=== PATIENT | female | born 1950 | race African-American/Black ===

== ENCOUNTER → 2018-02-08 | Outpatient (CLI) | payer MEDICARE, OTHER ==
[~2018-02-08] VITALS: Ht 165.1 cm; Wt 61.5 kg
[~2018-02-08] MED LIST: HYDR-3705 PO
[2018-02-08 11:02] VITALS: BP 133/88
== END | disposition home or self-care (01) ==
LOC: SRCNTR 10:44
PROVIDERS: ATTEND Internal Medicine Critical Care Medicine
DX: J43.9 Emphysema, unspecified (principal); E55.9 Vitamin D deficiency, unspecified; E78.5 Hyperlipidemia, unspecified; M79.7 Fibromyalgia
CPT/HCPCS: G0463

== ENCOUNTER → 2018-03-08 | Outpatient (CLI) | payer MEDICARE, OTHER | END | disposition home or self-care (01) | LOC: RESP 08:32 | PROVIDERS: ATTEND Internal Medicine Critical Care Medicine | DX: J44.1 Chronic obstructive pulmonary disease with (acute) exacerbation (principal) | CPT/HCPCS: 94010; 94726; 94727; 94729 ==

== ENCOUNTER 2018-11-01 07:51 | Emergency (ER) | payer MEDICARE, OTHER ==
[~2018-11-01] VITALS: Ht 165.1 cm; Wt 62.3 kg
[2018-11-01] MEDS ORDERED: MAGN100T3 PO (08:17)
[2018-11-01] MEDS ORDERED: RANI50VI4 IM (08:17)
[2018-11-01 08:48] LABS: BASOPHILS % (AUTO) 1.3 % (0.0-2.0); EOSINOPHILS % (AUTO) 2.3 % (1.0-6.0); HEMATOCRIT 41.1 % (36-46); HEMOGLOBIN 13.7 g/dL (12.0-16.0); LYMPHOCYTES # (AUTO) 1.7 K/uL (1.0-4.8); LYMPHOCYTES % (AUTO) 38.9 % (22.0-44.0); MEAN CORPUSCULAR HEMOGLOBIN 31.6 pg (26.0-34.0); MEAN CORPUSCULAR HGB CONC 33.2 G/dL (31.0-37.0); MEAN CORPUSCULAR VOLUME 95 fL (80-100); MONOCYTES # (AUTO) 0.3 K/uL (0.1-1.0); MONOCYTES % (AUTO) 7.4 % (2.0-9.0); NEUTROPHILS # (AUTO) 2.2 K/uL (1.8-7.7); NEUTROPHILS % (AUTO) 50.1 % (40.0-70.0); PLATELET COUNT (AUTO) 225 K/uL (150-450); RED BLOOD CELL COUNT(AUTO) 4.32 MIL/uL (4.00-5.20); RED CELL DISTRIBUTION WIDTH 15.6 % (11.5-14.5)
[2018-11-01 08:52] LABS: ANION GAP 8 mmol/L (8-16); CALCIUM, TOTAL 9.2 mg/dL (8.8-10.5); CARBON DIOXIDE 28 mmol/L (22-29); CHLORIDE 104 mmol/L (98-107); CREATININE 0.77 mg/dL (0.60-1.30); GLOMERULAR FILTR. RATE CALC > 60 mL/min (>60); GLUCOSE,RANDOM 89 mg/dL (70-110); POTASSIUM 3.9 mmol/L (3.5-5.1); SODIUM SERUM 140 mmol/L (136-145); UREA NITROGEN, BLOOD 5 mg/dL (7-18)
[2018-11-01 08:58] LABS: ALANINE AMINOTRANSFERASE 28 U/L (12-78); ALBUMIN 3.5 g/dL (3.4-5.0); ALKALINE PHOSPHATASE 68 U/L (46-116); ASPARTATE AMINOTRANSFERASE 19 U/L (15-37); BILIRUBIN,TOTAL 0.3 mg/dL (0.1-1.0); TOTAL PROTEIN, SERUM 7.6 g/dL (6.4-8.2)
[2018-11-01 10:56] LABS: BILIRUBIN,URINE NEGATIVE (NEGATIVE); GLUCOSE, URINE (UA) NEGATIVE (NEGATIVE); KETONES,URINE NEGATIVE (NEGATIVE); LEUKOCYTE ESTERASE ,URINE MODERATE (NEGATIVE); NITRATE,URINE NEGATIVE (NEGATIVE); OCCULT BLOOD,URINE NEGATIVE (NEGATIVE); PROTEIN,URINE NEGATIVE (NEGATIVE); UROBILINOGEN,URINE 0.2 mg/dL (<=1.0)
[2018-11-01 11:07] LABS: APPEARANCE,URINE HAZY (CLEAR); BACTERIA,URINE Few /HPF (None Seen); RBC,URINE None Seen /HPF (0-2)
[2018-11-01 12:01] VITALS: BP 147/90
[2018-11-01 14:01] LABS: GLUCOSE,POINT OF CARE 110 MG/DL (70-110)
== END 2018-11-01 12:10 | disposition home or self-care (01) ==
LOC: EMS 07:51
DX: N39.0 Urinary tract infection, site not specified (principal); R51 Headache; M79.7 Fibromyalgia; F32.9 Major depressive disorder, single episode, unspecified; R42 Dizziness and giddiness; R07.89 Other chest pain; Z79.899 Other long term (current) drug therapy
CPT/HCPCS: 87086; 93005

== ENCOUNTER 2019-08-27 05:21 | Inpatient (IN) | payer MEDICARE, OTHER ==
[~2019-08-27] VITALS: Ht 165.1 cm; Wt 69.8 kg
[~2019-08-27 05:21] MED LIST changes: -HYDR-3705 PO; +HYDR-3706 PO; +MAGN100T3 PO; +RANI50VI4 IM
[2019-08-27] MEDS ORDERED: ALBU8HFA IH (05:58)
[2019-08-27] MEDS ORDERED: ACETAMINOPHEN 500 MG TABLET PO ONE (06:15)
[2019-08-27] MEDS ORDERED: SODIUM CHLORIDE 0.9% 1,000 ML IV ONE ×2 (06:15→09:30)
[2019-08-27 06:30] LABS: BASOPHILS % (AUTO) 1.1 % (0.0-2.0); EOSINOPHILS % (AUTO) 1.8 % (1.0-6.0); HEMATOCRIT 41.6 % (36-46); HEMOGLOBIN 13.7 g/dL (12.0-16.0); LYMPHOCYTES # (AUTO) 1.7 K/uL (1.0-4.8); LYMPHOCYTES % (AUTO) 17.4 % (22.0-44.0); MEAN CORPUSCULAR HEMOGLOBIN 31.1 pg (26.0-34.0); MEAN CORPUSCULAR VOLUME 94 fL (80-100); MONOCYTES # (AUTO) 0.4 K/uL (0.1-1.0); MONOCYTES % (AUTO) 4.4 % (2.0-9.0); NEUTROPHILS # (AUTO) 7.2 K/uL (1.8-7.7); NEUTROPHILS % (AUTO) 75.3 % (40.0-70.0); PLATELET COUNT (AUTO) 204 K/uL (150-450); RED BLOOD CELL COUNT(AUTO) 4.42 MIL/uL (4.00-5.20); RED CELL DISTRIBUTION WIDTH 14.8 % (11.5-14.5)
[2019-08-27 06:41] LABS: PROTHROMBIN TIME 10.1 SEC (9.4-11.6)
[2019-08-27] MEDS ORDERED: SODIUM CHLORIDE 0.9% 2,200 ML IV ONE (06:45)
[2019-08-27] MEDS ORDERED: ACETAMINOPHEN 650 MG RECTAL SUPPOSITORY PR ONE ×2 (06:45)
[2019-08-27 07:08] LABS: INFLUENZA TYPE A NEGATIVE FOR TYPE A (NEGATIVE); INFLUENZA TYPE B NEGATIVE FOR TYPE B (NEGATIVE)
[2019-08-27 07:09] LABS: CREATINE KINASE, TOTAL ONLY 142 U/L (26-192); LIPASE 73 U/L (73-393)
[2019-08-27] MEDS ORDERED: AZITHROMYCIN 500 MG/NS 250 ML IV ONE (07:15)
[2019-08-27] MEDS ORDERED: CefTRIAXone 1 GM/DEXTROSE 50 ML IV ONE (07:15)
[2019-08-27 08:21] LABS: ANION GAP 13 mmol/L (8-16); CALCIUM, TOTAL 9.2 mg/dL (8.8-10.5); CARBON DIOXIDE 25 mmol/L (22-29); CHLORIDE 104 mmol/L (98-107); CREATININE 0.93 mg/dL (0.60-1.30); GLOMERULAR FILTR. RATE CALC > 60 mL/min (>60); GLUCOSE,RANDOM 96 mg/dL (70-110); POTASSIUM 3.6 mmol/L (3.5-5.1); SODIUM SERUM 142 mmol/L (136-145); UREA NITROGEN, BLOOD 11 mg/dL (7-18)
[2019-08-27 08:27] LABS: ALANINE AMINOTRANSFERASE 20 U/L (12-78); ALKALINE PHOSPHATASE 58 U/L (46-116); ASPARTATE AMINOTRANSFERASE 17 U/L (15-37); BILIRUBIN,TOTAL 0.6 mg/dL (0.1-1.0); TOTAL PROTEIN, SERUM 8.3 g/dL (6.4-8.2)
[2019-08-27] MEDS ORDERED: 0.9% SODIUM CHLORIDE 10 ML SYRINGE IVP PRN ×2 (08:30→10:45)
[2019-08-27] MEDS ORDERED: ACETAMINOPHEN 325 MG TABLET PO PRN (08:30)
[2019-08-27 08:36] LABS: APPEARANCE,URINE CLOUDY (CLEAR); BILIRUBIN,URINE NEGATIVE (NEGATIVE); GLUCOSE, URINE (UA) NEGATIVE (NEGATIVE); KETONES,URINE NEGATIVE (NEGATIVE); LEUKOCYTE ESTERASE ,URINE MODERATE (NEGATIVE); NITRATE,URINE POSITIVE (NEGATIVE); OCCULT BLOOD,URINE TRACE (NEGATIVE); PH,URINE 6.5 (5.0-8.0); PROTEIN,URINE NEGATIVE (NEGATIVE); UROBILINOGEN,URINE 0.2 mg/dL (<=1.0)
[2019-08-27 08:37] LABS: BACTERIA,URINE Many /HPF (None Seen); RBC,URINE 0-2 /HPF (0-2); SQUAMOUS EPITHELIAL CELL,UR Moderate /LPF (None Seen)
[2019-08-27 09:29] LABS: LACTIC ACID 3.4 mmol/L (0.4-2.0)
[2019-08-27] MEDS ORDERED: HYDR-4069 PO (10:44)
[2019-08-27] MEDS ORDERED: IPRATROPIUM BROMIDE 0.5 MG/2.5 ML NEB SOLUTION NEB PRN (10:45)
[2019-08-27] MEDS ORDERED: MAGNESIUM HYDROXIDE SUSPENSION 30 ML UDCUP PO PRN (10:45)
[2019-08-27] MEDS ORDERED: BISACODYL 10 MG RECTAL RECTAL SUPPOSITORY PR PRN (10:45)
[2019-08-27] MEDS ORDERED: ALBUTEROL SULFATE 2.5 MG/0.5 ML NEB SOLUTION NEB PRN (10:45)
[2019-08-27] MEDS ORDERED: ONDANSETRON HCL 4 MG/2 ML VIAL IVP PRN (10:45)
[2019-08-27] MEDS ORDERED: DOCUSATE SODIUM 100 MG CAPSULE PO PRN (10:45)
[2019-08-27] MEDS ORDERED: TraMADol HCL 50 MG TABLET PO PRN (11:00)
[2019-08-27 11:44] VITALS: BP 103/57
[2019-08-27] MEDS: SODIUM CHLORIDE 0.9% 1,000 ML IV SCH (12:33)
[2019-08-27] MEDS: PANTOPRAZOLE SODIUM 40 MG DR TABLET PO SCH (12:33)
[2019-08-27] MEDS ORDERED: PNEUMOCOCCAL VACCINE POLYVALENT 0.5 ML VIAL [PPSV23] IM ONE (15:00)
[2019-08-27 16:06] VITALS: BP 135/65
[2019-08-27] MEDS: ACETAMINOPHEN 325 MG TABLET PO PRN (18:02)
[2019-08-27 20:24] VITALS: BP 105/57
[2019-08-27] MEDS ORDERED: 0.9% SODIUM CHLORIDE 5 ML NEB SOLUTION NEB ONE (22:51)
[2019-08-27 23:29] VITALS: BP 122/76
[2019-08-28] MEDS: SODIUM CHLORIDE 0.9% 1,000 ML IV SCH ×3 (00:21→22:03)
[2019-08-28 05:28] VITALS: BP 108/62
[2019-08-28] MEDS: ACETAMINOPHEN 325 MG TABLET PO PRN ×2 (05:56→15:39)
[2019-08-28 06:51] LABS: BASOPHILS % (AUTO) 0.6 % (0.0-2.0); EOSINOPHILS % (AUTO) 2.2 % (1.0-6.0); HEMATOCRIT 31.3 % (36-46); HEMOGLOBIN 10.5 g/dL (12.0-16.0); LYMPHOCYTES # (AUTO) 0.5 K/uL (1.0-4.8); LYMPHOCYTES % (AUTO) 10.9 % (22.0-44.0); MEAN CORPUSCULAR HEMOGLOBIN 31.2 pg (26.0-34.0); MEAN CORPUSCULAR HGB CONC 33.4 G/dL (31.0-37.0); MEAN CORPUSCULAR VOLUME 93 fL (80-100); MONOCYTES # (AUTO) 0.3 K/uL (0.1-1.0); MONOCYTES % (AUTO) 6.9 % (2.0-9.0); NEUTROPHILS # (AUTO) 3.9 K/uL (1.8-7.7); NEUTROPHILS % (AUTO) 79.4 % (40.0-70.0); PLATELET COUNT (AUTO) 158 K/uL (150-450); RED BLOOD CELL COUNT(AUTO) 3.36 MIL/uL (4.00-5.20); RED CELL DISTRIBUTION WIDTH 14.8 % (11.5-14.5)
[2019-08-28 07:08] LABS: ANION GAP 11 mmol/L (8-16); CARBON DIOXIDE 22 mmol/L (22-29); CHLORIDE 108 mmol/L (98-107); CREATININE 0.66 mg/dL (0.60-1.30); GLOMERULAR FILTR. RATE CALC > 60 mL/min (>60); GLUCOSE,RANDOM 83 mg/dL (70-110); POTASSIUM 3.2 mmol/L (3.5-5.1); SODIUM SERUM 141 mmol/L (136-145); UREA NITROGEN, BLOOD 6 mg/dL (7-18)
[2019-08-28 08:18] VITALS: BP 111/68
[2019-08-28] MEDS: CefTRIAXone 1 GM/DEXTROSE 50 ML IV SCH (08:31)
[2019-08-28] MEDS: PANTOPRAZOLE SODIUM 40 MG DR TABLET PO SCH (08:32)
[2019-08-28] MEDS: AZITHROMYCIN 500 MG/NS 250 ML IV SCH (08:33)
[2019-08-28 11:46] VITALS: BP 111/85
[2019-08-28 15:53] VITALS: BP 116/65
[2019-08-28 21:02] VITALS: BP 147/67
[2019-08-29 00:42] VITALS: BP 135/74
[2019-08-29] MEDS: ACETAMINOPHEN 325 MG TABLET PO PRN ×2 (03:05→23:26)
[2019-08-29 05:24] VITALS: BP 118/64
[2019-08-29 06:05] LABS: BASOPHILS % (AUTO) 0.5 % (0.0-2.0); EOSINOPHILS % (AUTO) 6.4 % (1.0-6.0); HEMATOCRIT 30.9 % (36-46); HEMOGLOBIN 10.3 g/dL (12.0-16.0); LYMPHOCYTES # (AUTO) 1.2 K/uL (1.0-4.8); MEAN CORPUSCULAR HEMOGLOBIN 31.1 pg (26.0-34.0); MEAN CORPUSCULAR HGB CONC 33.4 G/dL (31.0-37.0); MEAN CORPUSCULAR VOLUME 93 fL (80-100); MONOCYTES # (AUTO) 0.6 K/uL (0.1-1.0); MONOCYTES % (AUTO) 11.3 % (2.0-9.0); NEUTROPHILS % (AUTO) 58.8 % (40.0-70.0); PLATELET COUNT (AUTO) 150 K/uL (150-450); RED BLOOD CELL COUNT(AUTO) 3.32 MIL/uL (4.00-5.20); RED CELL DISTRIBUTION WIDTH 14.7 % (11.5-14.5)
[2019-08-29 06:23] LABS: ANION GAP 13 mmol/L (8-16); CARBON DIOXIDE 22 mmol/L (22-29); CHLORIDE 107 mmol/L (98-107); CREATININE 0.75 mg/dL (0.60-1.30); GLUCOSE,RANDOM 76 mg/dL (70-110); SODIUM SERUM 142 mmol/L (136-145); UREA NITROGEN, BLOOD 5 mg/dL (7-18)
[2019-08-29 06:24] LABS: CALCIUM, TOTAL 8.1 mg/dL (8.8-10.5); GLOMERULAR FILTR. RATE CALC > 60 mL/min (>60)
[2019-08-29 07:50] VITALS: BP 141/84
[2019-08-29] MEDS: CefTRIAXone 1 GM/DEXTROSE 50 ML IV SCH (08:28)
[2019-08-29] MEDS: PANTOPRAZOLE SODIUM 40 MG DR TABLET PO SCH (08:29)
[2019-08-29] MEDS: AZITHROMYCIN 500 MG/NS 250 ML IV SCH (08:29)
[2019-08-29] MEDS: SODIUM CHLORIDE 0.9% 1,000 ML IV SCH (09:49)
[2019-08-29 12:13] VITALS: BP 135/75
[2019-08-29 16:35] VITALS: BP 139/78
[2019-08-29] MEDS: CEFEPIME HCL 1 GM in DEXTROSE 5%-WATER 50 ML IV SCH ×2 (17:06→23:24)
[2019-08-29] MEDS ORDERED: POTASSIUM CHL 10 MEQ/WATER 50 ML IV PRN (17:15)
[2019-08-29] MEDS ORDERED: POTASSIUM CHLORIDE 20 MEQ ER TABLET PO PRN (17:15)
[2019-08-29] MEDS ORDERED: SODIUM CHLORIDE 0.9% 250 ML IV ONE (17:47)
[2019-08-29 20:35] VITALS: BP 140/82
[2019-08-30 00:25] VITALS: BP 123/64
[2019-08-30 02:53] VITALS: BP 114/67
[2019-08-30] MEDS: CEFEPIME HCL 1 GM in DEXTROSE 5%-WATER 50 ML IV SCH (06:25)
[2019-08-30 07:46] VITALS: BP 156/99
[2019-08-30] MEDS: PANTOPRAZOLE SODIUM 40 MG DR TABLET PO SCH (09:29)
[2019-08-30] MEDS ORDERED: *CLINICAL-CEFEPIME DOSING CLINICAL SCH (10:00)
[2019-08-30] MEDS: AZITHROMYCIN 500 MG/NS 250 ML IV SCH (10:50)
[2019-08-30 11:27] VITALS: BP 152/77
[2019-08-30] MEDS ORDERED: LEVO250 PO (11:29)
== END 2019-08-30 13:20 | disposition home or self-care (01) | DRG 871 ==
LOC: EMS 05:23 → 5S 09:54
PROVIDERS: ADMIT Internal Medicine; ATTEND Internal Medicine
DX: A41.9 Sepsis, unspecified organism (principal); J18.9 Pneumonia, unspecified organism; N39.0 Urinary tract infection, site not specified; R65.20 Severe sepsis without septic shock; M79.7 Fibromyalgia; R53.81 Other malaise; M19.90 Unspecified osteoarthritis, unspecified site; F32.9 Major depressive disorder, single episode, unspecified; J40 Bronchitis, not specified as acute or chronic; Z87.11 Personal history of peptic ulcer disease; Z96.659 Presence of unspecified artificial knee joint; Z88.0 Allergy status to penicillin; Z88.8 Allergy status to other drugs, medicaments and biological substances; Z79.899 Other long term (current) drug therapy
CPT/HCPCS: 83605; 83735; 84132; 84145; 87040; 87086; 87804; 93005; 94640; 97161; 97165; 99291; J0456; J0692; J0696; J7030; J7050; J7060

== ENCOUNTER 2024-10-15 13:21 | Emergency (ER) | payer MEDICARE, OTHER ==
[~2024-10-15] VITALS: Ht 165.1 cm; Wt 75.9 kg
[~2024-10-15 13:21] MED LIST changes: +ALBU18HF12 IH; -HYDR-3706 PO; +HYDR-4069 PO; +LEVO250T75 PO; -MAGN100T3 PO; -RANI50VI4 IM
[2024-10-15 13:31] VITALS: BP 173/103; TEMP 98.3
[2024-10-15 13:52] LABS: COVID AG,FIA SOURCE NASAL SWAB
[2024-10-15 14:01] LABS: BASOPHILS % (AUTO) 1.5 % (0.0-2.0); EOSINOPHILS % (AUTO) 11.8 % (1.0-6.0); HEMATOCRIT 39.1 % (36-46); LYMPHOCYTES # (AUTO) 2.7 K/uL (1.0-4.8); LYMPHOCYTES % (AUTO) 51.4 % (22.0-44.0); MEAN CORPUSCULAR HEMOGLOBIN 31.4 pg (26.0-34.0); MEAN CORPUSCULAR HGB CONC 33.2 G/dL (31.0-37.0); MEAN CORPUSCULAR VOLUME 95 fL (80-100); MONOCYTES # (AUTO) 0.3 K/uL (0.1-1.0); NEUTROPHILS # (AUTO) 1.5 K/uL (1.8-7.7); NEUTROPHILS % (AUTO) 29.3 % (40.0-70.0); PLATELET COUNT (AUTO) 236 K/uL (150-450); RED BLOOD CELL COUNT(AUTO) 4.13 MIL/uL (4.00-5.20); RED CELL DISTRIBUTION WIDTH 15.5 % (11.5-14.5); WHITE BLOOD COUNT (AUTO) 5.3 K/uL (4.5-11.0)
[2024-10-15 14:11] LABS: INFLUENZA TYPE A NEGATIVE FOR TYPE A (NEGATIVE); INFLUENZA TYPE B NEGATIVE FOR TYPE B (NEGATIVE); SARS-COV2 (COVID) ANTIGEN,FIA Negative (Negative)
[2024-10-15 14:16] LABS: ANION GAP 6 mmol/L (8-16); CALCIUM, TOTAL 9.2 mg/dL (8.8-10.5); CARBON DIOXIDE 30 mmol/L (22-29); CHLORIDE 105 mmol/L (98-107); CREATININE 0.88 mg/dL (0.60-1.30); GLOMERULAR FILTR. RATE CALC > 60 mL/min (>60); GLUCOSE,RANDOM 114 mg/dL (70-110); POTASSIUM 3.9 mmol/L (3.5-5.1); SODIUM SERUM 141 mmol/L (136-145); UREA NITROGEN, BLOOD 3 mg/dL (7-18)
[2024-10-15] MEDS: GuaiFENesin/D-METHORPHAN [SUGAR-FREE] 200-20MG/10 ML SYRUP UDCUP PO ONE (14:44)
[2024-10-15] MEDS: ACETAMINOPHEN 500 MG TABLET PO ONE (14:44)
[2024-10-15] MEDS: CIPROFLOXACIN HCL 250 MG TABLET PO ONE (14:44)
[2024-10-15 15:00] LABS: TROPONIN I-HIGH SENSITIVITY 16 ng/L (<51)
[2024-10-15] MEDS ORDERED: CIPR500T10 PO (15:04)
[2024-10-15] MEDS ORDERED: ACET-66 PO (15:04)
[2024-10-15] MEDS ORDERED: GUAIFDM PO (15:04)
[2024-10-15] MEDS ORDERED: ALBU18HF12 IH (15:04)
[2024-10-15] MEDS: ALBUTEROL SULFATE 2.5 MG/0.5 ML NEB SOLUTION NEB ONE (15:12)
[2024-10-15] MEDS: IPRATROPIUM BROMIDE 0.5 MG/2.5 ML NEB SOLUTION NEB ONE (15:12)
[2024-10-15 15:13] VITALS: PULSE 81; RESP 18; O2SAT 96
[2024-10-15 15:17] VITALS: PULSE 81; RESP 18; O2SAT 96
[2024-10-15 15:25] VITALS: PULSE 54; RESP 17; O2SAT 100
[2024-10-15] MEDS ORDERED: PRED-554 PO (15:50)
== END 2024-10-15 16:03 | disposition home or self-care (01) ==
LOC: EMS 13:21
DX: J98.4 Other disorders of lung (principal); R06.02 Shortness of breath; F12.90 Cannabis use, unspecified, uncomplicated; M79.7 Fibromyalgia; Z87.11 Personal history of peptic ulcer disease; Z88.1 Allergy status to other antibiotic agents; Z88.2 Allergy status to sulfonamides; Z96.659 Presence of unspecified artificial knee joint; Z20.822 Contact with and (suspected) exposure to COVID-19
CPT/HCPCS: 71045; 80048; 84484; 85025; 87804; 93005; 94640; 99285; 36415-L1; 36415-TC; J7613

== ENCOUNTER 2025-02-19 07:43 | Emergency (ER) | payer MEDICARE, OTHER ==
[~2025-02-19] VITALS: Ht 154.9 cm; Wt 65.9 kg
[~2025-02-19 07:43] MED LIST changes: +ACET-66 PO; +CIPR-478 PO; +GUAIFDM PO; -HYDR-4069 PO; -LEVO250T75 PO; +PRED-554 PO
[2025-02-19 08:04] LABS: COVID AG,FIA SOURCE NASAL SWAB
[2025-02-19 08:09] VITALS: BP 134/87; PULSE 81; RESP 17; TEMP 98.105288; O2SAT 99
[2025-02-19 08:26] LABS: INFLUENZA TYPE A NEGATIVE FOR TYPE A (NEGATIVE); INFLUENZA TYPE B NEGATIVE FOR TYPE B (NEGATIVE); SARS-COV2 (COVID) ANTIGEN,FIA Negative (Negative)
[2025-02-19] MEDS ORDERED: ALBU18HF12 IH (08:52)
== END 2025-02-19 09:22 | disposition home or self-care (01) ==
LOC: EMS 07:45
DX: J06.9 Acute upper respiratory infection, unspecified (principal); J44.9 Chronic obstructive pulmonary disease, unspecified; F12.90 Cannabis use, unspecified, uncomplicated; Z88.1 Allergy status to other antibiotic agents; Z88.2 Allergy status to sulfonamides; Z87.11 Personal history of peptic ulcer disease; Z79.52 Long term (current) use of systemic steroids; Z20.822 Contact with and (suspected) exposure to COVID-19
CPT/HCPCS: 71046; 87804; 99283

== ENCOUNTER 2025-08-01 09:03 | Emergency (ER) | payer MEDICARE, OTHER ==
[~2025-08-01] VITALS: Ht 165.1 cm; Wt 64.5 kg
[~2025-08-01 09:03] MED LIST changes: -CIPR-478 PO; +CIPR-515 PO
[2025-08-01 09:07] VITALS: TEMP 98.1
[2025-08-01 09:17] LABS: COVID AG,FIA SOURCE NASAL SWAB
[2025-08-01] MEDS: KETOROLAC TROMETHAMINE 30 MG/ML VIAL IM ONE (10:02)
[2025-08-01] MEDS: AZITHROMYCIN 500 MG TABLET PO ONE (10:03)
[2025-08-01 10:06] LABS: INFLUENZA TYPE A NEGATIVE FOR TYPE A (NEGATIVE); INFLUENZA TYPE B NEGATIVE FOR TYPE B (NEGATIVE); SARS-COV2 (COVID) ANTIGEN,FIA Negative (Negative)
[2025-08-01] MEDS ORDERED: AZIT-164 PO (10:10)
[2025-08-01] MEDS ORDERED: ACET-2247 PO (10:10)
[2025-08-01 10:46] VITALS: BP 135/86; PULSE 81; RESP 18; O2SAT 99
== END 2025-08-01 10:50 | disposition home or self-care (01) ==
LOC: EMS 09:07
DX: J40 Bronchitis, not specified as acute or chronic (principal); F32.A Depression, unspecified; R05.9 Cough, unspecified; M19.90 Unspecified osteoarthritis, unspecified site; F12.90 Cannabis use, unspecified, uncomplicated; Z88.1 Allergy status to other antibiotic agents; Z88.2 Allergy status to sulfonamides; Z96.659 Presence of unspecified artificial knee joint; Z20.822 Contact with and (suspected) exposure to COVID-19
CPT/HCPCS: 99283; 71046; 87426; 87804; 96372; J1885; J0456

== ENCOUNTER 2025-10-09 08:11 | Emergency (ER) | payer MEDICARE, OTHER ==
[~2025-10-09] VITALS: Ht 165.1 cm; Wt 66.0 kg
[~2025-10-09 08:11] MED LIST changes: +ACET-2247 PO; -ACET-66 PO; +AZIT-164 PO; -CIPR-515 PO; -GUAIFDM PO; -PRED-554 PO
[2025-10-09 08:33] VITALS: BP 134/86; TEMP 98.4
[2025-10-09] MEDS: ALBUTEROL SULFATE 2.5 MG/0.5 ML NEB SOLUTION NEB ONE (08:57)
[2025-10-09] MEDS: IPRATROPIUM BROMIDE 0.5 MG/2.5 ML NEB SOLUTION NEB ONE (08:57)
[2025-10-09] MEDS: GuaiFENesin/D-METHORPHAN [SUGAR-FREE] 200-20MG/10 ML SYRUP UDCUP PO ONE (09:02)
[2025-10-09] MEDS: ACETAMINOPHEN 500 MG TABLET PO ONE (09:03)
[2025-10-09 09:04] VITALS: PULSE 79; RESP 18; O2SAT 99
[2025-10-09 09:05] LABS: COVID AG,FIA SOURCE NASAL SWAB
[2025-10-09 09:06] LABS: PLATELET COUNT (AUTO) 235 K/uL (150-450); RED BLOOD CELL COUNT(AUTO) 4.26 MIL/uL (4.00-5.20); RED CELL DISTRIBUTION WIDTH 15.5 % (11.5-14.5); WHITE BLOOD COUNT (AUTO) 4.3 K/uL (4.5-11.0)
[2025-10-09 09:18] LABS: CALCIUM, TOTAL 9.4 mg/dL (8.8-10.5); CREATININE 0.65 mg/dL (0.60-1.30); GLOMERULAR FILTR. RATE CALC > 60 mL/min (>60); GLUCOSE,RANDOM 86 mg/dL (70-110); SODIUM SERUM 143 mmol/L (136-145); UREA NITROGEN, BLOOD 5 mg/dL (7-18)
[2025-10-09 09:22] LABS: TROPONIN I-HIGH SENSITIVITY 15 ng/L (<51)
[2025-10-09 09:25] LABS: INFLUENZA TYPE A NEGATIVE FOR TYPE A (NEGATIVE); INFLUENZA TYPE B NEGATIVE FOR TYPE B (NEGATIVE); SARS-COV2 (COVID) ANTIGEN,FIA Negative (Negative)
[2025-10-09 09:30] VITALS: PULSE 75; RESP 17; O2SAT 100
[2025-10-09] MEDS ORDERED: ACET-66 PO (09:35)
[2025-10-09] MEDS ORDERED: GUAIFDM PO (09:35)
[2025-10-09] MEDS ORDERED: ALBU18HF12 IH (09:35)
[2025-10-09] MEDS ORDERED: AZIT250T9 PO (09:35)
[2025-10-09] MEDS ORDERED: PRED-554 PO (09:35)
== END 2025-10-09 10:05 | disposition home or self-care (01) ==
LOC: EMS 08:11
DX: J98.4 Other disorders of lung (principal); F32.A Depression, unspecified; F12.90 Cannabis use, unspecified, uncomplicated; M19.90 Unspecified osteoarthritis, unspecified site; M79.7 Fibromyalgia; Z98.890 Other specified postprocedural states; Z88.1 Allergy status to other antibiotic agents; Z88.2 Allergy status to sulfonamides; Z96.659 Presence of unspecified artificial knee joint; Z20.822 Contact with and (suspected) exposure to COVID-19
CPT/HCPCS: 71045; 80048; 84484; 85025; 87804; 93005; 94640; 99283; 36415-L1; 36415-TC; J7613